=== PATIENT | male | born 1990 | race Caucasian/White ===

== ENCOUNTER 2021-11-15 15:19 | Emergency (ER) | payer BC ==
[2021-11-15 15:42] VITALS: BP 133/87; PULSE 93; O2SAT 97
[2021-11-15] MEDS ORDERED: Adacel Vial IM ONE ×2 (15:44→15:48)
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
[2021-11-15] MEDS ORDERED: TORAdol 30 mg Injection IM ONE (16:46)
[2021-11-15] MEDS ORDERED: TORAdol 30 mg Injection ONE (16:47)
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
== END 2021-11-15 17:01 | disposition home or self-care (01) ==
LOC: EDBD 15:19 → ED 15:19 → MERGE 15:19 → ED 17:01
DX: S01.81XA Laceration without foreign body of other part of head, initial encounter (principal); W20.8XXA Other cause of strike by thrown, projected or falling object, initial encounter; Y93.82 Activity, spectator at an event; Y92.39 Other specified sports and athletic area as the place of occurrence of the external cause
CPT/HCPCS: 12013; 70450; 90471; 90715; 96372; 99283; J1885

== ENCOUNTER 2022-03-04 18:55 | Emergency (ER) | payer BC ==
--- NOTE | 2022-03-04 19:16 | ERPHSYRPT ---
- History of Present Illness Time Seen by Provider: 03/04/22 19:05 Historian: patient, family Exam Limitations: no limitations Patient Subjective Stated Complaint: Pt c/o of mid sternal chest pain since yesterday and his right arm is now numb and tingly Triage Nursing Assessment: Pt brought to the ER, vitals wnl, rates chest and arm pain as 5/10, had an echo at Dr. Zhang'dominga a couple of weeks ago, no edema, pulses normal, skin n/w/d, doesn't appear to be in any distress Physician History: This is a 31-year-old white male patient who has a history of mitral valve prolapse and also has a history of intermittent chest pain over several years. Yesterday, the pain was in the right anterior chest described as a ache which radiated into his right arm. His right arm, today at work, felt numb and heavy and weak. He has no history of CVA or TIAs. Recently, patient underwent an echocardiogram. Its been at least 6 years since he seen a credit collector. Because of his current symptoms patient was brought into the emergency room on his own for evaluation. Other than the mitral valve prolapse the patient has not had any history of cardiac disease. Patient is not short of breath. He has no abdominal pain. He has had no nausea vomiting or diarrhea. Timing/Duration: yesterday Activities at Onset: none Quality: aching Location: substernal, central, other (Right anterior shoulder) Chest Pain Radiation: arm (Right arm) Severity of Pain-Max: moderate Severity of Pain-Current: mild Modifying Factors: Improves With: nothing Associated Symptoms: weakness (Right arm) Prior Chest Pain/Cardiac Workup: echocardiography (Within the last 2 weeks echocardiogram was performed) Nitro Today/Relief: no nitro taken today Aspirin Treatment Today: no aspirin today Allergies/Adverse Reactions: amoxicillin [Amoxicillin] Allergy (Mild, Verified 03/04/22 19:10) Hives Home Medications: Metoprolol Succinate 25 mg PO DAILY 11/15/21 [History] Hx Tetanus, Diphtheria Vaccination/Date Given: No (since out of high school) Hx Influenza Vaccination/Date Given: No Hx Pneumococcal Vaccination/Date Given: No Travel Risk - International Travel Have you traveled outside of the country in past 3 weeks: No - Coronavirus Screening Are you exhibiting any of the following symptoms?: No Close contact with a COVID-19 positive Pt in past 14-21 Days: No - Vaccine Status Have you recieved a Covid-19 vaccination: No - Review of Systems Constitutional: No Symptoms Eyes: No Symptoms Ears, Nose, & Throat: No Symptoms Respiratory: No Symptoms Cardiac: Chest Pain Abdominal/Gastrointestinal: No Symptoms Genitourinary Symptoms: No Symptoms Musculoskeletal: No Symptoms Skin: No Symptoms Neurological: No Symptoms Psychological: No Symptoms Endocrine: No Symptoms Hematologic/Lymphatic: No Symptoms Immunological/Allergic: No Symptoms All Other Systems: Reviewed and Negative - Past Medical History Pertinent Past Medical History: Yes Neurological History: No Pertinent History Cardiac History: Other Respiratory History: No Pertinent History Endocrine Medical History: No Pertinent History Musculoskeletal History: No Pertinent History Other Medical History: Mitral prolapse - Past Surgical History Past Surgical History: Yes Genitourinary: Other Other Surgical History: kidney stones removed - Social History Smoking Status: Never smoker Exposure to second hand smoke: No Drug Use: none Patient Lives Alone: No Significant Family History: no pertinent family hx - Nursing Vital Signs Nursing Vital Signs: Initial Vital Signs Temperature 97.3 F 03/04/22 19:01 Pulse Rate 63 03/04/22 19:01 Blood Pressure 125/81 03/04/22 19:01 O2 Sat by Pulse Oximetry 98 03/04/22 19:01 Pain Scale Pain Intensity 5 - Physical Exam General Appearance: no apparent distress, alert, anxiety Eye Exam: PERRL/EOMI, eyes nml inspection Ears, Nose, Throat Exam: normal ENT inspection, moist mucous membranes Neck Exam: normal inspection, non-tender, supple, full range of motion Respiratory Exam: normal breath sounds, chest tenderness, lungs clear, airway intact, No respiratory distress Cardiovascular Exam: regular rate/rhythm, normal heart sounds, normal peripheral pulses Gastrointestinal/Abdomen Exam: soft, normal bowel sounds, No tenderness Rectal Exam: not done Back Exam: normal inspection, normal range of motion, No CVA tenderness, No vertebral tenderness Extremity Exam: normal inspection, normal range of motion, pelvis stable Neurologic Exam: alert, oriented x 3, cooperative, scaler II-XII nml as tested, normal mood/affect, nml cerebellar function, nml station & gait, sensation nml Skin Exam: normal color, warm, dry Lymphatic Exam: No adenopathy SpO2 Interpretation: normal SpO2: 98 O2 Delivery: Room Air - Course Nursing assessment & vital signs reviewed: Yes Ordered Tests: Active Orders 24 hr Category Date Time Status Chandelier Maker STAT Care 03/04/22 19:17 Active EKG-ER Only STAT Care 03/04/22 19:16 Active IV Insertion STAT Care 03/04/22 19:16 Active Pulse Oximetry (ED) STAT Care 03/04/22 19:16 Active HEAD WITHOUT CONTRAST [CT] Stat Exams 03/04/22 19:18 Taken CBC W DIFF Stat Lab 03/04/22 19:30 Completed CMP Stat Lab 03/04/22 19:30 Completed D-DIMER QUANTITATIVE Stat Lab 03/04/22 19:30 Completed PROTIME WITH INR Stat Lab 03/04/22 19:30 Completed TROPONIN Q3H Lab 03/04/22 19:30 Completed TROPONIN Q3H Lab 03/04/22 22:30 Ordered TROPONIN Q3H Lab 03/05/22 01:30 Ordered TROPONIN Q3H Lab 03/05/22 04:30 Ordered TROPONIN Q3H Lab 03/05/22 07:30 Ordered Medication Summary Discontinued Medications Generic Name Dose Route Start Last Admin Trade Name Higinioq PRN Reason Stop Dose Admin Aspirin 324 mg 03/04/22 19:16 03/04/22 19:22 Aspirin 81 Mg Tab.Chew PO 03/04/22 19:17 324 mg STAT ONE Administration Lab/Rad Data: Laboratory Result Diagrams 03/04/22 19:30 03/04/22 19:30 Laboratory Results 03/04/22 03/04/22 03/04/22 Range/Units 19:30 19:30 19:30 WBC (4.0-10.5) x10^3/uL RBC (4.1-5.6) x10^6/uL Hgb (12.5-18.0) g/dL Hct (42-50) % MCV (78-100) fL MCH (26-32) pg MCHC (32-36) g/dL RDW (11.5-14.0) % Plt Count (150-450) x10^3/uL MPV (7.5-11.0) fL Gran % (36.0-66.0) % Immature Gran % (Auto) (0.00-0.4) % Nucleat RBC Rel Count (0.00-0.1) % Eos # (Auto) (0-0.5) x10^3/uL Immature Gran # (Auto) (0.00-0.03) x10^3u/L Absolute Lymphs (auto) (1.0-4.6) x10^3/uL Absolute Monos (auto) (0.0-1.3) x10^3/uL Absolute Nucleated RBC (0.00-0.01) x10^3u/L Lymphocytes % (24.0-44.0) % Monocytes % (0.0-12.0) % Eosinophils % (0.00-5.0) % Basophils % (0.0-0.4) % Absolute Granulocytes (1.4-6.9) x10^3/uL Basophils # (0-0.4) x10^3/uL PT 10.6 (9.4-12.5) SECONDS INR 1.00 (0.8-3.0) D-Dimer < 0.19 (0.0-0.50) mg/L Sodium 140 (137-145) mmol/L Potassium 3.8 (3.5-5.1) mmol/L Chloride 105 (98-107) mmol/L Carbon Dioxide 28 (22-30) mmol/L Anion Gap 10.9 (5-15) MEQ/L BUN 6 L (9-20) mg/dL Creatinine 0.99 (0.66-1.25) mg/dL Estimated GFR > 60.0 ML/MIN Glucose 85 (74-106) mg/dL Calcium 9.6 (8.4-10.2) mg/dL Total Bilirubin 0.40 (0.2-1.3) mg/dL AST 24 (17-59) U/L ALT 20 (0-50) U/L Alkaline Phosphatase 57 (38-126) U/L Troponin I < 0.012 (0.000-0.034) ng/mL Serum Total Protein 7.1 (6.3-8.2) g/dL Albumin 4.3 (3.5-5.0) g/dL 03/04/22 Range/Units 19:30 WBC 8.5 (4.0-10.5) x10^3/uL RBC 4.85 (4.1-5.6) x10^6/uL Hgb 13.7 (12.5-18.0) g/dL Hct 41.1 L (42-50) % MCV 84.7 (78-100) fL MCH 28.2 (26-32) pg MCHC 33.3 (32-36) g/dL RDW 12.6 (11.5-14.0) % Plt Count 262 (150-450) x10^3/uL MPV 11.1 H (7.5-11.0) fL Gran % 62.1 (36.0-66.0) % Immature Gran % (Auto) 0.4 (0.00-0.4) % Nucleat RBC Rel Count 0.0 (0.00-0.1) % Eos # (Auto) 0.29 (0-0.5) x10^3/uL Immature Gran # (Auto) 0.03 (0.00-0.03) x10^3u/L Absolute Lymphs (auto) 2.22 (1.0-4.6) x10^3/uL Absolute Monos (auto) 0.63 (0.0-1.3) x10^3/uL Absolute Nucleated RBC 0.00 (0.00-0.01) x10^3u/L Lymphocytes % 26.0 (24.0-44.0) % Monocytes % 7.4 (0.0-12.0) % Eosinophils % 3.4 (0.00-5.0) % Basophils % 0.7 (0.0-0.4) % Absolute Granulocytes 5.31 (1.4-6.9) x10^3/uL Basophils # 0.06 (0-0.4) x10^3/uL PT (9.4-12.5) SECONDS INR (0.8-3.0) D-Dimer (0.0-0.50) mg/L Sodium (137-145) mmol/L Potassium (3.5-5.1) mmol/L Chloride (98-107) mmol/L Carbon Dioxide (22-30) mmol/L Anion Gap (5-15) MEQ/L BUN (9-20) mg/dL Creatinine (0.66-1.25) mg/dL Estimated GFR ML/MIN Glucose (74-106) mg/dL Calcium (8.4-10.2) mg/dL Total Bilirubin (0.2-1.3) mg/dL AST (17-59) U/L ALT (0-50) U/L Alkaline Phosphatase (38-126) U/L Troponin I (0.000-0.034) ng/mL Serum Total Protein (6.3-8.2) g/dL Albumin (3.5-5.0) g/dL - Progress Progress: improved, re-examined Air Movement: good Progress Note: 03/04/22 20:54 CAT scan of the head without contrast shows no acute intracranial abnormality. Patient states he is feeling better. Blood Culture(s) Obtained: No Antibiotics given: No Counseled pt/family regarding: lab results, diagnosis, need for follow-up - Departure Departure Disposition: Home Clinical Impression: Non-cardiac chest pain Condition: Stable Critical Care Time: No Referrals: SHRADDHA ROBLES [Primary Care Provider] - Follow up/PCP as directed Additional Instructions: Keep your appointment with your primary care provider tomorrow morning. Take your medications as prescribed. Follow-up with credit collector for further evaluation management.
[2022-03-04] MEDS: BABY ASPIRIN 81 MG CHEW PO ONE (19:22)
[2022-03-04 19:47] LABS: Absolute Neutrophil Ct (ANC) 5.31 x10^3/uL (1.4-6.9); Basophil (Absolute #) 0.06 x10^3/uL (0-0.4); Eosinophil % 3.4 % (0.00-5.0); Eosinophil (Absolute #) 0.29 x10^3/uL (0-0.5); Hematocrit 41.1 % (42-50); Hemoglobin 13.7 g/dL (12.5-18.0); Lymphocyte (Absolute #) 2.22 x10^3/uL (1.0-4.6); Mean Cell Volume 84.7 fL (78-100); Mean Corpuscular Hemoglobin 28.2 pg (26-32); Mean Corpuscular Hgb Concent. 33.3 g/dL (32-36); Mean Platelet Volume 11.1 fL (7.5-11.0); Monocyte (Absolute #) 0.63 x10^3/uL (0.0-1.3); Monocytes % 7.4 % (0.0-12.0); Neutrophil % 62.1 % (36.0-66.0); Platelet Count 262 x10^3/uL (150-450); Red Blood Count 4.85 x10^6/uL (4.1-5.6); Red Cell Distribution Width 12.6 % (11.5-14.0); White Blood Count 8.5 x10^3/uL (4.0-10.5)
[2022-03-04 20:06] LABS: ALBUMIN 4.3 g/dL (3.5-5.0); ALKALINE PHOSPHATASE 57 U/L (38-126); ANION GAP 10.9 MEQ/L (5-15); BLOOD UREA NITROGEN 6 mg/dL (9-20); CHLORIDE 105 mmol/L (98-107); Calcium 9.6 mg/dL (8.4-10.2); Carbon Dioxide 28 mmol/L (22-30); Creatinine 1 0.99 mg/dL (0.66-1.25); EST GLOMERULAR FILTRATION RATE > 60.0 ML/MIN; Glucose 85 mg/dL (74-106); Potassium 3.8 mmol/L (3.5-5.1); SGOT/AST 24 U/L (17-59); SGPT/ALT 20 U/L (0-50); SODIUM 140 mmol/L (137-145); Total Protein 7.1 g/dL (6.3-8.2)
[2022-03-04 20:11] LABS: D-DIMER QUANTITATIVE < 0.19 mg/L (0.0-0.50); PROTIME 10.6 SECONDS (9.4-12.5)
[2022-03-04 21:07] VITALS: BP 124/90; PULSE 62; O2SAT 97
--- NOTE | 2022-03-05 08:37 | XRAY ---
Indication: Right arm numbness and weakness. Stroke. Multiple contiguous axial images obtained through the head without contrast. Comparison: November 15, 2021 Normal appearing brain parenchyma, ventricles, and bony calvarium. Visualized paranasal sinuses and mastoid air cells are clear. Impression: Continued normal CT head without contrast exam. MRI may yield further information if there remains further clinical concern.
== END 2022-03-04 21:14 | disposition home or self-care (01) ==
LOC: ED 18:55
DX: R07.89 Other chest pain (principal); R20.0 Anesthesia of skin; Z79.899 Other long term (current) drug therapy; Z28.310 Unvaccinated for COVID-19
CPT/HCPCS: 36000; 36415; 70450; 80053; 84484; 85025; 85379; 85610; 93005; 93041; 94760; 99284; A9270-GY

== ENCOUNTER 2025-06-08 23:21 | Emergency (ER) | payer BC ==
[2025-06-08 23:28] VITALS: TEMP 97.2; O2SAT 98
--- NOTE | 2025-06-09 00:01 | ERPHSYRPT ---
- History of Present Illness Time Seen by Provider: 06/08/25 23:40 Source: patient, family Exam Limitations: no limitations Patient Subjective Stated Complaint: rt sided lower jaw pain, to ear, temporal area, and to chin Triage Nursing Assessment: Pt ambulated into ER without diff, spouse at bedside. Pt c/o rt lower jaw pain that radiates up to rt ear, rt temporal area, and down the jaw line to the chin. This pain all began on Wednesday but has progressively gotten worse and radiated. Pt actually had the lower jaw pain for a few weeks and he thought it was dental pain and has been on several different antibiotics but nothing has seemed to help. Physician History: This is a 34-year-old white male patient who arrives by private vehicle accompanied by his spouse who is a nurse practitioner with the complaint of s harp shooting intermittent pain right cheek in the distribution of the trigeminal nerve. He has been seen as an outpatient and has been treated with antibiotics with the thinking that this was a dental infection. His symptoms have not improved despite outpatient intervention. There is been no trauma. Timing/Duration: gradual onset, intermittent, weeks (2) Severity: mild (To moderate) Prearrival Treatment: over the counter meds, prescription meds Modifying Factors: Improves With: nothing Associated Symptoms: facial pain/swelling (Right side facial pain intermittently) Allergies/Adverse Reactions: amoxicillin [Amoxicillin] Allergy (Mild, Verified 06/08/25 23:28) Hives Home Medications: Atomoxetine HCl 40 mg PO DAILY 06/08/25 [History] Cephalexin Mh 500 mg [Keflex 500 mg] 1 tab PO QID 06/08/25 [History] Losartan Potassium 25 mg PO DAILY 06/08/25 [History] Hx Tetanus, Diphtheria Vaccination/Date Given: Yes Hx Influenza Vaccination/Date Given: No Hx Pneumococcal Vaccination/Date Given: No Travel Risk - International Travel Have you traveled outside of the country in past 3 weeks: No - Emerging Infectious Disease Are you exhibiting symptoms associated with any current EIDs: No - Review of Systems Constitutional: No Symptoms Eyes: No Symptoms Ears, Nose, & Throat: No Symptoms Respiratory: No Symptoms Cardiac: No Symptoms Abdominal/Gastrointestinal: No Symptoms Genitourinary Symptoms: No Symptoms Musculoskeletal: No Symptoms Skin: No Symptoms Neurological: Other (Right sided facial pain) Psychological: No Symptoms Endocrine: No Symptoms Hematologic/Lymphatic: No Symptoms Immunological/Allergic: No Symptoms All Other Systems: Reviewed and Negative - Past Medical History Pertinent Past Medical History: Yes Neurological History: No Pertinent History ENT History: No Pertinent History Cardiac History: Hypertension, Other Endocrine Medical History: No Pertinent History Musculoskeletal History: No Pertinent History GI Medical History: No Pertinent History History: No Pertinent History Psycho-Social History: Attention Deficit Disorder Male Reproductive Disorders: No Pertinent History Other Medical History: Mitral prolapse - Past Surgical History Past Surgical History: Yes Neuro Surgical History: No Pertinent History Cardiac: No Pertinent History Respiratory: No Pertinent History Gastrointestinal: No Pertinent History Genitourinary: Other Male Surgical History: Vasectomy Other Surgical History: kidney stones removed Significant Family History: no pertinent family hx - Social History Smoking Status: Never smoker Exposure to second hand smoke: No Drug Use: none - Social Determinants of Health Will the patient participate in the screening: Yes Do you worry about a steady place to live?: No Do you have any problems with any of the following?: No known problems In the past 12 months,have you had to go without utilities?: No Transportation Issues: No Has anyone in your support network made you feel unsafe?: No Have you or anyone in your house had to go w/o enough food: No - Nursing Vital Signs Nursing Vital Signs: Initial Vital Signs Temperature 97.2 F 06/08/25 23:25 Pulse Rate 62 06/08/25 23:25 Respiratory Rate 17 06/08/25 23:25 Blood Pressure 135/90 06/08/25 23:25 O2 Sat by Pulse Oximetry 98 06/08/25 23:25 Pain Scale Pain Intensity 8 - Physical Exam General Appearance: no apparent distress, alert, anxiety Eye Exam: bilateral eye: normal inspection, PERRL, EOMI Ear Exam: bilateral ear: auricle normal, canal normal, TM normal Nasal Exam: normal inspection Throat Exam: normal, pharynx normal, moist mucus membranes, No dental tenderness, No trismus, No voice changes Neck Exam: normal inspection, non-tender, supple, full range of motion Cardiovascular/Respiratory Exam: chest non-tender, no respiratory distress Abdominal Exam: non-tender Neurologic Exam: alert, oriented x 3, cooperative, gizzard skin remover II-XII nml as tested, normal mood/affect, nml cerebellar function, nml station & gait, sensation nml Skin Exam: normal color, warm, dry SpO2 Interpretation: normal SpO2: 98 O2 Delivery: Room Air - Course Nursing assessment & vital signs reviewed: Yes - Progress Progress: pain not gone completely, re-examined Progress Note: 06/09/25 00:37 My medical decision making and the assignment of low complexity of this patient's medical issue today is based on review of the patient's past medical history, reviewed patient's medication list, reviewed the patient drug allergy list, history of present illness and physical findings on examination. It is also based on the discussion that I had with both the patient and his nurse practitioner spouse. I reviewed several medications to treat trigeminal neuralgia. However, the patient is on Strattera and there is the side effect of prolonged QT interval. There is also of the side effect of prolongation of QT interval with amitriptyline, side effect of serotonin syndrome with both Tegretol and amitriptyline. The patient last took Strattera at 5 PM on 06/08/2025. He admits he is not compliant with that medication. After long discussion of several different medications, their effectiveness, drug interactions and side effects, we, together, decided on gabapentin tonight. He will hold the Strattera for the next 2 nights and take gabapentin. He will then call his prescribing providers on 06/11/2025, to determine the clinical impression and the appropriate medications for him to be on as an outpatient. We, together, decided against CT scan of the head and facial bones. Differential diagnosis includes but is not limited to trigeminal neuralgia, other neuropathic pain, dental pain 06/09/25 00:41 Counseled pt/family regarding: diagnosis, need for follow-up Medical Desision Making - Independent Historian Additional History obtained from: Spouse - Diagnostic Testing Diagnostic test were ordered, analyzed, and reviewed by me: No - Risk of complications Low Risk: Low risk of morbidity from additional dx testing or treatment The pt has a mod risk of morbidity or mortality based on: Need for prescription drug management - Departure Departure Disposition: Home Clinical Impression: Trigeminal neuralgia of right side of face Condition: Stable Critical Care Time: No Referrals: LEORA BORGES NP [Primary Care Provider, UNKNOWN] - Follow up/PCP as directed Additional Instructions: Do not take the Strattera on 06/09/2025 and 06/10/2025. Call the patient's prescribing providers on the morning of 06/11/2025 to discuss further workup and management of your symptoms. Prescriptions: Gabapentin 300 mg PO QHS #3 cap
[2025-06-09 01:03] VITALS: BP 128/83; PULSE 60; RESP 16
== END 2025-06-09 01:03 | disposition home or self-care (01) ==
LOC: ED 23:21
DX: G50.0 Trigeminal neuralgia (principal); I10 Essential (primary) hypertension; Z79.899 Other long term (current) drug therapy